=== PATIENT | male | born 1995 | race Caucasian/White ===

== ENCOUNTER 2021-12-03 22:38 | Emergency (ER) | payer SELFPAY ==
[2021-12-03] MEDS ORDERED: Ondansetron PF 4 MG/2 ML Vial ONE (23:43)
[2021-12-03] MEDS ORDERED: Dicyclomine 20 MG/2 ML VIAL ONE (23:43)
[2021-12-04 00:13] LABS: #Basophils 0.1 10x3/uL (0.0-0.2); #Eosinphils 0.3 10x3/uL (0.0-0.5); #Monocytes 0.7 10x3/uL (0.0-1.1); #Neutrophils 8.9 10x3/uL (1.5-8.4); %Basophils 0.5 % (0.0-2.0); %Eosinophils 2.4 % (0.0-6.0); %Lymphocytes 4.9 % (18.0-47.0); %Monocytes 6.3 % (0.0-10.0); %Neutrophils 85.6 % (40.0-75.0); Hemoglobin 14.7 g/dL (13.5-17.5); Mean Corpuscular HGB CONC 33.1 g/dL (32.0-36.0); Mean Corpuscular Hemoglobin 28.9 pg (27.0-33.0); Mean Corpuscular Volume 87.2 fl (81.2-95.1); Mean Platelet Volume 9.8 fl (7.4-10.4); Platelet Count 258 10x3/uL (150-450); RBC Distribution Width 13.4 % (11.5-14.5); Red Blood Cell (RBC) Count 5.09 10x6/uL (4.32-5.72); White Blood Cell (WBC) Count 10.4 10x3/uL (3.5-10.5)
[2021-12-04 00:31] LABS: ALT (SGPT) 16 U/L (8-55); AST (SGOT) 18 U/L (5-34); Albumin 4.8 g/dL (3.5-5.0); Alkaline Phosphatase 41 U/L (40-110); Anion Gap 17 mmol/L (10-20); BUN (Urea Nitrogen) 16 mg/dL (8.9-20.6); Calc. Creatinine Clearance 0 mL/min (70-130); Calcium 9.5 mg/dL (7.8-10.44); Carbon Dioxide 28 mmol/L (22-29); Chloride 102 mmol/L (98-107); Globulin 3.3 g/dL (2.4-3.5); Glucose 110 mg/dL (70-105); Lipase 22 U/L (8-78); Potassium 3.9 mmol/L (3.5-5.1); Protein, Total 8.1 g/dL (6.0-8.3); Sodium 143 mmol/L (136-145)
== END 2021-12-04 00:52 | disposition home or self-care (01) ==
LOC: CSHERS 22:38
DX: R11.2 Nausea with vomiting, unspecified (principal); F17.210 Nicotine dependence, cigarettes, uncomplicated
CPT/HCPCS: 80053; 83690; 85025; 96361; 96372; 96374; J0500; J2405

== ENCOUNTER 2023-03-27 08:24 | Emergency (ER) | payer SELFPAY | END 2023-03-27 10:18 | disposition home or self-care (01) | LOC: CSHERS 08:24 | DX: M25.532 Pain in left wrist (principal); R21 Rash and other nonspecific skin eruption; F17.210 Nicotine dependence, cigarettes, uncomplicated ==

== ENCOUNTER 2024-05-30 10:04 | Emergency (ER) | payer SELFPAY ==
[2024-05-30] MEDS ORDERED: Ibuprofen 200 MG TAB ONE (10:25)
== END 2024-05-30 11:35 | disposition home or self-care (01) ==
LOC: CSHERS 10:04
DX: M25.561 Pain in right knee (principal); R07.9 Chest pain, unspecified
CPT/HCPCS: 71045; 93005; 93010

== ENCOUNTER 2024-06-14 14:54 | Emergency (ER) | payer SELFPAY ==
[2024-06-14] MEDS ORDERED: Acetaminophen 500 MG TAB ONE (15:43)
== END 2024-06-14 16:00 | disposition home or self-care (01) ==
LOC: CSHERS 14:54
DX: J11.1 Influenza due to unidentified influenza virus with other respiratory manifestations (principal)
CPT/HCPCS: 99283